=== PATIENT | male | born 1990 | race Caucasian/White ===

== ENCOUNTER 2021-10-08 01:05 | Day surgery (SDC) | payer OTHER, SELFPAY ==
--- NOTE | 2021-10-05 12:11 | PM.HPGS ---
History of Present Illness History of Present Illness Consent: Risks, benefits, and alternatives have been discussed and questions answered. Patient agrees to proceed with procedure. Chief complaint: Septal Deviation, Hyperturbination Narrative: Yazan Abbasi is a 30 year old male long history of nasal obstructi Review of Systems Review of Systems: All systems reviewed & are unremarkable except as noted in HPI and below PMFSH Past Medical History Medical History Allergies Headache Family History Family History Mother Asthma Social History Social History Smoking status: Never smoker Alcohol intake: current Substance use: never Meds Home Medications and Allergies Home Medications Medication Instructions Recorded Confirmed Type clindamycin HCl 300 mg capsule 300 mg PO Q8H #30 cap 06/25/21 06/25/21 Rx methylprednisolone 4 mg tablets in See Rx Instructions PO PER PKG DIR 06/25/21 06/25/21 Rx a dose pack #21 ea azelastine 137 mcg (0.1 %) nasal 1 spray INTRANASAL Q12H #30 ml 07/09/21 Rx spray aerosol fluticasone propionate 50 1 spray INTRANASAL BID #16 ml 07/09/21 Rx mcg/actuation nasal spray,suspension Allergies Allergy/AdvReac Type Severity Reaction Status Date / Time nickel Allergy Unknown unknown Verified 06/25/21 14:58 Exam Narrative: septum deviated to the left polyp on the right chest clear heart without murmurs abdomen soft extremities neg Assessment and Plan Additional Plan septoplasty right nasal polypectomy anterior ethmoidectomy bilateral turbinectomy
[2021-10-06 08:23] VITALS: BMI 31.8
--- NOTE | 2021-10-06 08:40 | PC.NURSE ---
Report to the Outpatient Waiting Room, entrance under the green pavilion located off [facility], at time 0745 on date 10/08/21. OR Time: 0945. - You and your visitor will be asked a series of questions to screen for COVID 19 for your protection. - A mask is required within the hospital. - Only one visitor is allowed at this time. Patient visitors will be guided where to wait when not with patient. Preoperative COVID Testing Requirements: No COVID Test needed if: (proof is required; if not received patient will have Rapid Test prior to entry) - Patient has received COVID Vaccine at least 14 days prior to procedure date or - Patient has positive COVID test result within last 90 days of surgery date. COVID Test needed if above criteria is not met If not COVID vaccinated a COVID test must be conducted within 72 hours of surgery and patient is asked to isolate self from time of testing until procedure. You will go to the [facility] for your COVID testing. The [facility] is located at the corner of [address] [facility]. You will only be called if COVID results are positive and your surgeon may reschedule your elective surgery date. Patients may have clear liquids (water, carbonated beverages, clear teas, apple juice) until 3 hours prior to surgery with a maximum of 20 ounces. - No food from midnight until time of surgery - Infants may have breast milk until 4 hours before surgery, infant formula 6 hours prior to surgery. - Children will be allowed to drink immediately following surgery. If applicable, please bring a bottle or sippy cup to assist with drinking. Juice, water, soda, and popsicles are readily available. For infants on formula, please bring formula the day of surgery. Pacifiers are allowed. Take the following medications with a SIP of water the morning of surgery: N/A Medications to discontinue per physician: N/A Date to take last dose: N/A Please no make-up, nail mohawk, hairspray, perfume, deodorant, or body powder the day of surgery. No jewelry (including any body piercings) or valuables the day of surgery, leave them at home. Please take a shower or bath the night before, or the morning of, surgery with an antibacterial soap. Wear comfortable, loose fitting clothing. Children are encouraged to wear pajamas. - Jewelry must be removed prior to entering the operating room. Rings and piercings that are not removed may be cut off. - The hospital will not accept responsibility for valuables. - Please leave all valuables, including medications, at home the day of surgery. If you are going home after surgery, a licensed corrugated fastener driver must drive you home. - NO public transportation without another adult. - We recommend that an adult stay with you for 24 hours following discharge. - We also recommend that you do not drive, make important decision, drink alcoholic beverages, or take any drugs that were not prescribed by your health care provider for at least 24 hours after your discharge time. For Pediatric surgeries, we recommend two adults accompany the child home (only one inside the building at this time). Follow any additional instructions given to you from your surgeon. Telephone instructions given to JAYASHREE CALZADA and asked if any additional questions and then verbalized understanding. Patient advised to call surgeon office or pre surgery nurse liaison [phone] if any additional questions.
[2021-10-08] VITALS (8 sets, daily range): BP systolic 119–136; BP diastolic 72–94; PULSE 69–92; RESP 15–23; TEMP 36.1–36.8; O2SAT 98–100
--- NOTE | 2021-10-08 05:55 | WPDHPUPDATE1 ---
History and Physical Update Update Date/Time: 10/08/21 05:55 History and Physical has been reviewed, including an updated exam of the patient. There are NO changes in the patient's condition. Risks, benefits, and alternatives have been discussed and questions answered. Patient agrees to proceed with procedure.
[2021-10-08] MEDS: LACTATED RINGERS 1,000 ML 30 ML IV CONT (08:20)
[2021-10-08] MEDS: ACETAMINOPHEN 500 MG TABLET 1000 MG PO (08:27)
--- NOTE | 2021-10-08 09:21 | WPDANESEPPF ---
Anes - Initial Pre Proc Eval Procedure: Operation Date: 10/08/21 09:30 Proposed Procedures p Septoplasty - Enrico Boswell MD s Bilateral Inferior Turbinectomy, Anterior Ethmoidectomy - Enrico Boswell MD Date/Time: 10/08/21 09:21 Surgeon: Enrico Boswell MD Pre Op Diagnosis: Septal Deviation, Hyperturbination Patient Data Age: 30 Gender: M Height: 1.83 m Weight: 105.6 kg Last Vital Signs Temp 36.8 C 10/08/21 08:15 Pulse 74 10/08/21 08:15 Resp 16 10/08/21 08:15 BP 119/72 10/08/21 08:15 Pulse Ox 98 10/08/21 08:15 Allergies Allergy/AdvReac Type Severity Reaction Status Date / Time nickel Allergy Unknown unknown Verified 10/08/21 09:06 Home Medications Medication Instructions Recorded Confirmed Type No Home Medications 10/06/21 10/08/21 History Patient hx anesthesia problems: none Family hx anesthesia problems: none Results Review: All pre-operative results and documents have been reviewed as part of the pre-operative evaluation. [facility] Past Medical History Medical History Allergies Headache Family History Family History Mother Asthma Social History Social History Smoking status: Never smoker Alcohol intake: current Drinks per week: 1 Substance use: never Substance use type: does not use Living arrangements: with family Spiritual care concerns: No Anes - Eval Final PreProcedure Day of Procedure 10/08/21 09:21 Patient weight: obese Heart: regular rate and rhythm Lungs: clear to auscultation Airway: Mallampati scale class II Neurological: alert and oriented Last oral intake: >/= 8 hours ASA classification: II Emergent: no Anesthetic plan: proceed Anesthesia type and monitoring: general ETT and standard monitoring Results Review: All pre-operative results and documents have been reviewed as part of the pre-operative evaluation. Informed Consent: The patient's anesthetic plan and its attendant risks and benefits were discussed with the patient/family/POA. Questions were solicited and answers provided to the satisfaction of the patient/family/POA.
[2021-10-08] MEDS: LIDO 1%/EPINEPHRINE 1:100,000 50 ML VIAL 10 ML INFILTRATE (10:10)
[2021-10-08] MEDS: COCAINE HCL (*CRX) 4% TOP SOLN 4 ML VIAL 1 APPLIC TOPICAL (10:11)
--- NOTE | 2021-10-08 10:38 | W.PM.PROC2 ---
Procedure Note - Detailed Date of Procedure 10/08/21 Pre-op Diagnosis Septal Deviation, Hyper trophic turbinate Post-op Diagnosis same Procedure Performed Septoplasty inferior turbinectomy nasal polypectomy right anterior ethmoid right Surgeon Enrico Boswell MD Description of Procedure Patient prepped and draped in fashion anesthesia the nose packed with Afrin impregnated cottonoids and 4% cocaine was injected with xylocaine with adrenaline a right lynette transfix was made left anterior and posterior tunnels elevated the bony cartilages junction the right posterior elevated strip of septal cartilage removed with a maxillary crest bony deviation was removed this swelling the cartilage and bony remnants the midline the middle tear of the inferior turbinate was outfractured and cauterized on the right side with a large nasal polyp which was opening up into the anterior ethmoid this polyp was removed the anterior ethmoid was opened splints sutured in patient awakened returned to recovery in good condition
--- NOTE | 2021-10-08 13:34 | SUR.PHASEII ---
pt given written prescription
== END 2021-10-08 13:07 | disposition home or self-care (01) ==
PROVIDERS: PCP Family Medicine Sports Medicine; Visit Provider Otolaryngology
PROC: (CPT 30520; principal; 2021-10-08 09:30)
PROC: (CPT 30520; 2021-10-08 09:30)
DX: J34.2 Deviated nasal septum (principal); J34.3 Hypertrophy of nasal turbinates; J33.9 Nasal polyp, unspecified; E66.9 Obesity, unspecified; Z68.31 Body mass index [BMI] 31.0-31.9, adult; J32.8 Other chronic sinusitis
CPT/HCPCS: 30520; 30140; 31254; 88305; 88311; A9270; J0330; J1100; J2250; J2405; J2704; J3010; J7120